=== PATIENT | female | born 1970 ===

== ENCOUNTER 2021-03-11 21:22 | Emergency (ER) | payer SELFPAY ==
[2021-03-11 21:27] VITALS: BP 143/77; PULSE 75; RESP 16; TEMP 98.2
--- NOTE | 2021-03-11 21:36 | ED ---
General Adult HPI - General Chief complaint: Recheck/Abnormal Lab/Rx Stated complaint: Covid test for travel Time Seen by Provider: 03/11/21 21:36 Source: patient, RN notes reviewed Mode of arrival: ambulatory Limitations: no limitations - History of Present Illness Initial comments: 50-year-old female presented to the emergency Department with chief complaint of needing COVID-19 testing for travel. Patient states that she is asymptomatic denies any fevers chills cough congestion nausea vomiting diarrhea constipation. Patient offers no other complaints. - Related Data Allergies Allergy/AdvReac Type Severity Reaction Status Date / Time morphine Allergy Rash/Hives Verified 03/11/21 21:28 Review of Systems ROS Statement: Those systems with pertinent positive or pertinent negative responses have been documented in the HPI. ROS Other: All systems not noted in ROS Statement are negative. Past Medical History Past Medical History: No Reported History History of Any Multi-Drug Resistant Organisms: None Reported Past Surgical History: No Surgical Hx Reported Past Psychological History: No Psychological Hx Reported Smoking Status: Never smoker Past Alcohol Use History: None Reported Past Drug Use History: None Reported General Exam Limitations: no limitations General appearance: alert, in no apparent distress Head exam: Present: atraumatic, normocephalic, normal inspection Neck exam: Present: normal inspection. Absent: tenderness, meningismus, lymphadenopathy Respiratory exam: Present: normal lung sounds bilaterally. Absent: respiratory distress, wheezes, rales, rhonchi, stridor Course Vital Signs 03/11/21 21:24 Temperature 98.2 F Pulse Rate 75 Respiratory 16 Rate Blood Pressure 143/77 O2 Sat by Pulse 98 Oximetry Medical Decision Making - Lab Data Lab Results 03/11/21 Range/Units 21:28 Coronavirus (PCR) Not Detected (Not Detectd) Disposition Clinical Impression: Encounter for laboratory testing for COVID-19 virus Disposition: HOME SELF-CARE Condition: Stable Additional Instructions: Please return to the Emergency Department if symptoms worsen or any other concerns. Is patient prescribed a controlled substance at d/c from ED?: No Referrals: None,Stated [Primary Care Provider] - 1-2 days Time of Disposition: 21:36
== END 2021-03-11 22:16 | disposition home or self-care (01) ==
LOC: EC 21:22
DX: Z20.822 Contact with and (suspected) exposure to COVID-19 (principal); Z88.5 Allergy status to narcotic agent
CPT/HCPCS: 87635; 99282